=== PATIENT | female | born 1980 | race Caucasian/White ===

== ENCOUNTER 2019-02-26 03:12 | Emergency (ER) | payer SELFPAY ==
[2019-02-26 03:32] VITALS: BMI 26.6
--- NOTE | 2019-02-26 04:02 | PDOC ---
Attending Attestation - Resident Resident Name: SukumarMati - ED Attending Attestation I have performed the following: I have examined & evaluated the patient, The case was reviewed & discussed with the resident, I agree w/resident's findings & plan - HPI HPI: 02/26/19 05:48 Pt started bleeding thru 20 pads. - Physicial Exam PE: 02/26/19 05:48 Pt has normal exam; no abd pain and no flank pain. Blood in vag vault, but cervical os closed. Pt is Opositive - Medical Decision Making 02/26/19 05:49 Labs normal; Hb/HCT normal. She had a bhcg is 9000s. She will have a sono pelvis. 02/26/19 06:10 SHe will be signed out to the day team
[2019-02-26] MEDS ORDERED: SODIUM CHLORIDE 1,000 ML IV STA (04:04)
[2019-02-26] MEDS ORDERED: ACETAMINOPHEN 325 MG TABLET (FP) PO ONE (04:04)
--- NOTE | 2019-02-26 04:09 | PDOC ---
History of Present Illness - General Chief Complaint: Vaginal Bleeding Stated Complaint: VAGINAL BLEEDING POSSIBLE MISCARRIAGE Time Seen by Provider: 02/26/19 03:42 History Source: Patient Exam Limitations: No Limitations - History of Present Illness Initial Comments: 02/26/19 04:33 38 yo F with a hx of HTN, HLD, and recent gastric sleeve surgery (8 months ago) presents to the emergency department with vaginal bleeding and lower abdominal cramps. The patient states she started having vaginal spotting during the past 2 days and had sudden onset of abdominal lower midline cramping at 7 pm today followed by vaginal bleeding with 24 pads soaked through. The patient became lightheaded afterwards. Denies trauma. Her last menstrual period was mid December 2018, but states she is normally regular. Denies chest pain, SOB, dysuria, hematuria, and diarrhea. Allergies: NKDA Meds: None Social History: Denies tobacco, alcohol, and substance abuse. 02/26/19 04:45 Past History - Past Medical History Allergies/Adverse Reactions: Allergies Allergy/AdvReac Type Severity Reaction Status Date / Time No Known Allergies Allergy Verified 02/26/19 03:33 Home Medications: Ambulatory Orders NK [No Known Home Medication] 02/26/19 COPD: No - Suicide/Smoking/Psychosocial Hx Smoking History: Unknown if ever smoked Hx Alcohol Use: No Drug/Substance Use Hx: No Substance Use Type: None Review of Systems - Review of Systems Able to Perform ROS?: Yes Is the patient limited [place]ian proficient: No Constitutional: Yes: Weakness. No: Chills, Diaphoresis, Fever HEENTM: No: Eye Pain, Recent change in vision, Ear Pain, Nose Pain, Throat Pain , Mouth Pain Respiratory: No: Cough, Shortness of Breath, Hemoptysis Cardiac (ROS): Yes: Lightheadedness. No: Chest Pain, Palpitations, Syncope, Chest Tightness ABD/GI: Yes: Abdominal cramping. No: Constipated, Diarrhea, Nausea, Rectal Bleeding, Vomiting, Tarry Stools : No: Burning, Dysuria, Hematuria Musculoskeletal: No: Back Pain, Joint Pain, Neck Pain Integumentary: No: Bruising, Erythema, Rash Neurological: No: Headache, Numbness, Tingling, Tremors, Ataxia Psychiatric: No: Change in Appetite Endocrine: No: Unexplained Weight Gain Hematologic/Lymphatic: No: Anemia *Physical Exam - Vital Signs Last Vital Signs Temp Pulse Resp BP Pulse Ox 98.3 F 86 16 119/78 99 02/26/19 03:15 02/26/19 03:15 02/26/19 03:15 02/26/19 03:15 02/26/19 03:15 - Physical Exam General Appearance: Yes: Nourished, Appropriately Dressed. No: Apparent Distress, Intoxicated HEENT: positive: EOMI, NITIN, Normal Voice, Symmetrical, Pharynx Normal, Hearing Grossly Normal. negative: Pale Conjunctivae, Scleral Icterus (R), Scleral Icterus (L), Muffled/Hoarse voice, Pharyngeal Erythema, Tonsillar Exudate, Tonsillar Erythema, Excessive drooling Neck: positive: Trachea midline, Supple. negative: Tender, Lymphadenopathy (R) , Lymphadenopathy (L), Tender lateral, Tender midline Respiratory/Chest: positive: Lungs Clear, Normal Breath Sounds. negative: Chest Tender, Respiratory Distress, Accessory Muscle Use, Crackles, Rales, Rhonchi, Stridor Cardiovascular: positive: Regular Rhythm, Regular Rate, S1, S2. negative: Systolic Murmur Female Pelvic Exam: positive: cervical os closed, normal size ovaries, vaginal bleeding. negative: CMT, adnexal tenderness Gastrointestinal/Abdominal: positive: Normal Bowel Sounds, Tender (lower abdomen midline\), Flat, Soft. negative: Distended, Guarding Lymphatic: negative: Adenopathy Musculoskeletal: positive: Normal Inspection. negative: CVA Tenderness, Vertebral Tenderness Extremity: positive: Normal Capillary Refill, Normal Inspection, Normal Range of Motion. negative: Tender, Swelling, Calf Tenderness Integumentary: positive: Normal Color, Dry, Warm. negative: Swelling, Ecchymosis Neurologic: positive: benefits specialist II-XII NML intact, Fully Oriented, Alert, Normal Mood/ Affect, Normal Response, Motor Strength 5/5. negative: EOM Palsy, Facial Droop , Sensory Deficit ED Treatment Course - LABORATORY CBC & Chemistry Diagram: 02/26/19 04:06 02/26/19 04:06 Medical Decision Making - Medical Decision Making 02/26/19 04:54 38 yo F with a hx of HTN, HLD, and recent gastric sleeve surgery (8 months ago) presents to the emergency department with vaginal bleeding and lower abdominal cramps. Initial vitals: Initial Vital Signs Temp Pulse Resp BP Pulse Ox 98.3 F 86 16 119/78 99 02/26/19 03:15 02/26/19 03:15 02/26/19 03:15 02/26/19 03:15 02/26/19 03:15 Work up: ddx: vaginal bleeding with delayed menstrual period likely secondary to miscarriage given blood clot expulsion. threatened vs inevitable vs incomplete vs complete . will order bhcg to assess status, h/h to assess hematologic response. will resuscitate with 1 L bolus NS and tylenol for analgesia. Laboratory Tests 02/26/19 02/26/19 02/26/19 04:06 04:06 04:06 WBC 7.2 RBC 4.18 Hgb 12.1 Hct 35.7 MCV 85.3 MCH 28.9 MCHC 33.9 RDW 13.9 Plt Count 233 MPV 10.4 Absolute Neuts (auto) 3.1 Neutrophils % 43.2 Lymphocytes % 47.8 H Monocytes % 6.3 Eosinophils % 2.1 Basophils % 0.6 Nucleated RBC % 0 PT with INR 12.30 INR 1.04 Sodium 139 Potassium 3.7 Chloride 106 Carbon Dioxide 26 Anion Gap 7 L BUN 7 Creatinine 0.5 L Creat Clearance w eGFR 136.65 Random Glucose 109 H Calcium 8.3 L Total Bilirubin 0.3 AST 17 ALT 21 Alkaline Phosphatase 50 Total Protein 6.5 Albumin 3.4 Beta HCG, Quant 9301.0 Blood Type Antibody Screen 02/26/19 04:06 WBC RBC Hgb Hct MCV MCH MCHC RDW Plt Count MPV Absolute Neuts (auto) Neutrophils % Lymphocytes % Monocytes % Eosinophils % Basophils % Nucleated RBC % PT with INR INR Sodium Potassium Chloride Carbon Dioxide Anion Gap BUN Creatinine Creat Clearance w eGFR Random Glucose Calcium Total Bilirubin AST ALT Alkaline Phosphatase Total Protein Albumin Beta HCG, Quant Blood Type O POSITIVE Antibody Screen Negative 02/26/19 05:43 Bhcg shows 9301 with closed cervical os. will need tvus to confirm expulsion of and to rule out ectopic. will be signed out to day team for TVUS *DC/Admit/Observation/Transfer - Referrals Referrals: Hayde Lou MD [Primary Care Provider] - - Patient Instructions - Post Discharge Activity
[2019-02-26] MEDS ORDERED: ACETAMINOPHEN 325 MG TABLET (FP) ONE (04:10)
[2019-02-26 04:32] LABS: BASO % 0.6 % (0-2.0); EOS % 2.1 % (0-4.5); HEMATOCRIT 35.7 % (32.4-45.2); HEMOGLOBIN 12.1 GM/dL (10.7-15.3); LYMPH % 47.8 % (8-40); MCH 28.9 pg (25.7-33.7); MCHC 33.9 g/dl (32.0-36.0); MEAN CELL VOLUME 85.3 fl (80-96); MEAN PLT VOLUME 10.4 fl (7.5-11.1); MONO % 6.3 % (3.8-10.2); NEUT % 43.2 % (42.8-82.8); PLATELET COUNT 233 K/MM3 (134-434); RBC 4.18 M/mm3 (3.60-5.2); RDW 13.9 % (11.6-15.6); WHITE BLOOD COUNT 7.2 K/mm3 (4.0-10.0)
[2019-02-26 04:43] LABS: INR 1.04 (0.83-1.09); PROTHROMBIN TIME (PATIENT) 12.3 SEC (9.7-13.0)
[2019-02-26 05:21] LABS: ALBUMIN 3.4 g/dl (3.4-5.0); ALK PHOS 50 U/L (45-117); ANION GAP 7 MMOL/L (8-16); BILIRUBIN,TOTAL 0.3 mg/dL (0.2-1); BLOOD UREA NITROGEN 7 mg/dL (7-18); CALCIUM 8.3 mg/dL (8.5-10.1); CHLORIDE 106 mmol/L (98-107); CO2 26 mmol/L (21-32); CREATININE 0.5 mg/dL (0.55-1.3); GLUCOSE,RANDOM 109 mg/dL (74-106); POTASSIUM 3.7 mmol/L (3.5-5.1); SGOT/AST 17 U/L (15-37); SGPT/ALT 21 U/L (13-61); SODIUM 139 mmol/L (136-145); TOT PROT 6.5 g/dl (6.4-8.2)
--- NOTE | 2019-02-26 07:09 | PDOC ---
*Physical Exam - Vital Signs Last Vital Signs Temp Pulse Resp BP Pulse Ox 98.3 F 86 16 119/78 99 02/26/19 03:15 02/26/19 03:15 02/26/19 03:15 02/26/19 03:15 02/26/19 03:15 ED Treatment Course - LABORATORY CBC & Chemistry Diagram: 02/26/19 04:06 02/26/19 04:06 - ADDITIONAL ORDERS Additional order review: Laboratory Results 02/26/19 02/26/19 02/26/19 04:06 04:06 04:06 PT with INR 12.30 INR 1.04 Sodium 139 Potassium 3.7 Chloride 106 Carbon Dioxide 26 Anion Gap 7 L BUN 7 Creatinine 0.5 L Creat Clearance w eGFR 136.65 Random Glucose 109 H Calcium 8.3 L Total Bilirubin 0.3 AST 17 ALT 21 Alkaline Phosphatase 50 Total Protein 6.5 Albumin 3.4 Beta HCG, Quant 9301.0 Blood Type O POSITIVE Antibody Screen Negative 02/26/19 04:06 RBC 4.18 MCV 85.3 MCHC 33.9 RDW 13.9 MPV 10.4 Neutrophils % 43.2 Lymphocytes % 47.8 H Monocytes % 6.3 Eosinophils % 2.1 Basophils % 0.6 - Medications Given in the ED: ED Medications Discontinued Medications Generic Name Dose Route Start Last Admin Trade Name Madi PRN Reason Stop Dose Admin Acetaminophen 975 mg 02/26/19 04:04 02/26/19 04:13 Tylenol - PO 02/26/19 04:05 975 mg ONCE ONE Administration Sodium Chloride 1,000 mls @ 1,000 mls/hr 02/26/19 04:04 02/26/19 04:15 Normal Saline - IV 02/26/19 05:03 1,000 mls/hr ASDIR STA Administration Medical Decision Making - Medical Decision Making 02/26/19 07:01 S/O from Dr. Sukumar hernandez with vag bleed and abdominal cramps States she went through 20 pads and 2 diapers since 7 30 pm 02/25 Bleeding stopped while in the ED H/H Pt given tylenol. Pain relieved beta 9301 Vag exam: OS closed, not actively bleeding No OB pending UA and transvaginal US Dispo to f/u and establish care with OB 2 days, trend beta *DC/Admit/Observation/Transfer Diagnosis at time of Disposition: Vaginal bleeding, - Discharge Dispostion Disposition: HOME Condition at time of disposition: Stable Decision to Admit order: No - Referrals Referrals: Hayde Lou MD [Primary Care Provider] - Kenton Mills MD [Staff Physician] - - Patient Instructions Printed Discharge Instructions: Ectopic , DI for Vaginal Bleeding Additional Instructions: Please follow up with your Primary Doctor within the next 48 hours. An appointment was made for you to see the [facility] Doctor Lina at 1 pm. You must make it to that appointment. Return to the ER for new or concerning symptoms including but not limited to: excessive progressive bleeding, light headedness, loss of consciousness, excessive abdominal pain, high fevers. Thank you - Post Discharge Activity
[2019-02-26 08:35] LABS: EPI CELLS 0.5 /HPF (0-5/HPF); PH,URINE 5.5 (5.0-8.0); URINE APPEARANCE CLEAR; URINE BACTERIA 0.5 /hpf (NEGATIVE); URINE BILIRUBIN NEGATIVE (NEGATIVE); URINE CASTS 2 /lpf (0-8); URINE COLOR YELLOW; URINE GLUCOSE (UA) NEGATIVE (NEGATIVE); URINE KETONE NEGATIVE (NEGATIVE); URINE LEUK ESTERASE NEGATIVE (NEGATIVE); URINE NITRITE NEGATIVE (NEGATIVE); URINE PROTEIN NEGATIVE (NEGATIVE); URINE RBC 916 /hpf (0-4); URINE UROBILINOGEN 0.2 mg/dL (0.2-1.0); URINE WBC 1 /hpf (0-5)
[2019-02-26 11:08] VITALS: BP 128/65; PULSE 77; TEMP 98.5
== END 2019-02-26 12:11 | disposition home or self-care (01) ==
LOC: JER 03:12
PROC: 3E0337Z Introduction of Electrolytic and Water Balance Substance into Peripheral Vein, Percutaneous Approach (ICD-10-PCS; principal; 2019-02-26)
DX: O26.891 Other specified pregnancy related conditions, first trimester (principal); O20.8 Other hemorrhage in early pregnancy; O10.911 Unspecified pre-existing hypertension complicating pregnancy, first trimester; Z3A.01 Less than 8 weeks gestation of pregnancy; E78.5 Hyperlipidemia, unspecified
CPT/HCPCS: 36415; 76817-TC; 80053; 81003; 84702; 85025; 85610; 86850; 86900; 86901; 87086; 99284-25; J7030